=== PATIENT | male | born 2000 | race Caucasian/White ===

== ENCOUNTER 2025-01-28 16:39 | Emergency (ER) | payer SELFPAY ==
--- NOTE | 2025-01-28 16:41 | ED.UPPEXIN ---
HPI - Extremity Injury (Upper) General Chief Complaint: Skin/Abscess/Foreign Body Stated Complaint: Injured Arm Time Seen by Provider: 01/28/25 16:52 Source: patient, RN notes reviewed and old records reviewed Mode of arrival: ambulatory Limitations: no limitations History of Present Illness HPI narrative: 24-year-old male presents to the [facility] with a large splinter in the left posterior forearm. Happened approximately 30 minutes prior to arrival. Unknown last Tdap. Related Data Allergies Allergy/AdvReac Type Severity Reaction Status Date / Time No Known Allergies Allergy Verified 01/28/25 17:11 Review of Systems Review of Systems: All systems reviewed & are unremarkable except as noted in HPI and below Constitutional: Constitutional: Reports no additional constitutional complaints Musculoskeletal: Musculoskeletal: Reports no additional musculoskeletal complaints Integumentary/Breasts: Skin/Breast: Reports as per HPI, Reports wounds and Reports other (FB, splinter) PMFSH Comments At the time of my signature, I reviewed and agree with the nursing past medical, surgical, social, and family history. There is no relevant family history pertinent to the patient complaint. Exam Const: General: cooperative, healthy appearing, comfortable, no acute distress, well developed, alert and well nourished Nutritional Appearance: well nourished Orientation/consciousness: patient oriented x3 Limitations: no limitations HENMT: Head: normal to inspection Eyes: General: appearance normal, both eyes and all related structures Alignment and Position: alignment normal Neck: Neck: normal visual inspection, full ROM, no lymphadenopathy and no meningeal signs Chest: Chest palpation & inspection: normal inspection of the chest Resp: Effort & Inspection: normal respiratory effort and able to speak in complete sentences Cardio: Rate: regular rate Skin: General skin exam: normal color and no rashes or lesions noted Other: 2 cm splinter mid left posterior forearm Neuro: General: patient oriented x3, gait normal, moves all extremities and no meningeal signs Cognition (Neuro): normal cognition Speech: normal speech Gait exam (Neuro): Normal gait present Extrem: General: normal to inspection, full ROM, capillary refill normal and normal gait Psych: Appearance: grossly normal and well kempt Mental Status: mental status grossly normal Speech and movement: Normal speech and movement present and Clear speech present Affect: normal affect Attitude: cooperative Course Course Emergency Course: Cleaned with Betadine, procedure explained, patient verbalized understanding, verbal consent obtained. Injected with a total of 3 males of lidocaine, attempted to pull, unable to pull, small incision made above a splinter removed intact. Placed patient on antibiotic Level of Care: Express Care Visit Vital Signs Vital signs: Vital Signs Temperature 98.4 F 01/28/25 16:50 Pulse Rate 105 H 01/28/25 16:50 Respiratory Rate 18 01/28/25 16:50 Blood Pressure 137/87 01/28/25 16:50 Pulse Oximetry 100 01/28/25 16:50 Oxygen Delivery Room Air 01/28/25 16:50 Temperature 98.4 F 01/28/25 16:50 Pulse Rate 105 H 01/28/25 16:50 Respiratory Rate 18 01/28/25 16:50 Blood Pressure 137/87 01/28/25 16:50 Pulse Oximetry 100 01/28/25 16:50 Oxygen Delivery Room Air 01/28/25 16:50 Reviewed MDM - Extremity Injury (Upper) MDM Narrative Medical decision making narrative: Patient sitting in exam room. Patient is nontoxic, vitals stable. Patient presents with a splinter to the forearm. Able to removed splinter Covering with antibiotic Updated tetanus Patient appropriate for outpatient treatment with close follow Discharge instructions reviewed with patient, as well as provided in writing per nursing staff. The instructions also include specific and strict return/GO TO THE ER as well as f/u information. All questions have been answered, and the patient deny any further questions with discharge and discharge plan. Some parts of this dictation were generated by voice recognition software and may contain typographical and/or grammatical inaccuracies. Differential Diagnosis Differential diagnosis: Likely other (Foreign body skin) Critical Care Time Critical Care Time Critical Care Time: No Discharge Plan Discharge Clinical Impression: Foreign body in forearm, Vaccine for [id number], combined Patient Disposition: Home Condition: Stable Instructions: Antibiotic Form, Acute Wounds (DC) Additional Instructions: Wash area twice daily with warm soapy water, pat dry. Take antibiotic as prescribed twice daily for 7 days Ice every 2-3 hours for 15-20 minutes while awake Take Tylenol alternating with ibuprofen as needed for pain. Per package instructions. Keep it covered when not at home with a Band-Aid. Follow-up with primary care provider For new or worsening symptoms please go directly to the emergency room Patient Language: Vietnamese Prescriptions: New cephalexin 500 mg capsule 500 mg PO Q12H Qty: 14 0RF Follow-up/Referrals: UNKNOWN,DOCTOR [Non-Staff] - Time of Disposition: 17:24
[2025-01-28 16:50] VITALS: BP 137/87; PULSE 105; RESP 18; TEMP 36.9; O2SAT 100
[2025-01-28] MEDS: TETANUS,DIPHTHERIA,AC PERTUSSIS ADULT (0.5 ML) BOOSTRIX IM (17:13)
[2025-01-28] MEDS: LIDOCAINE 1% LOCAL INJ 2 ML AMPUL 4 ML INFILTRATE (17:13)
== END 2025-01-28 17:27 | disposition home or self-care (01) ==
PROVIDERS: Emergency Provider Nurse Practitioner
DX: S50.852A Superficial foreign body of left forearm, initial encounter (principal); W45.8XXA Other foreign body or object entering through skin, initial encounter; Z23 Encounter for immunization
CPT/HCPCS: 10120; 90471; 90715; 99203; G0463; J2003